=== PATIENT | female | born 1985 | race Caucasian/White ===

== ENCOUNTER → 2017-09-08 | Outpatient (CLI) | payer OTHER ==
--- NOTE | 2017-09-08 11:04 | DIAGNOSTIC IMAGING REPORT ---
GUIDANCE NEEDLE PLACEMENT CLINICAL HISTORY: 32 years-old Female presenting with THRYOID NODULE- U/S DONE AUGUST 2017. TECHNIQUE: Real-time grayscale and limited color Doppler ultrasound imaging of the thyroid was performed for ultrasound-guided fine-needle aspiration. COMPARISON: None. PROCEDURE: The risks, benefits, and alternatives of the procedure were discussed with the patient. Written informed consent was obtained. A timeout was performed to confirm patient identity. The patient was placed supine in ultrasound. The thyroid was first evaluated by ultrasound. 1. Interpolar spongiform heterogeneous circumscribed round nodule, measuring 5.1 cm. No calcification. (Very low suspicion) The spongiform 5.1 cm nodule in the left lobe of the thyroid was localized by ultrasound and selected for fine needle aspiration. The left neck was prepped and draped in the usual sterile fashion. The nodule was aspirated under ultrasound guidance with 3 passes utilizing 25-gauge needles. Specimens were reviewed by the pathologist at the time of biopsy and were deemed adequate for diagnosis. The patient tolerated the procedure well. IMPRESSION: Successful fine-needle aspiration of the left thyroid nodule as above. Should the pathology report return nondiagnostic results, this could be followed with subsequent ultrasound in 6-12 months. Electronically signed by: Tino Kelsey M.D. 09/08/2017 11:02 AM Dictated Date/Time: 09/08/2017 10:59 AM
== END | disposition home or self-care (01) ==
LOC: C.ULTR 09:47
PROVIDERS: ATTEND Nurse Practitioner
DX: E04.1 Nontoxic single thyroid nodule (principal)